=== PATIENT | female | born 1970 | race Caucasian/White ===

== ENCOUNTER → 2020-12-31 | Outpatient (CLI) | payer OTHER ==
[2020-12-31 13:43] LABS: RED BLOOD COUNT 4.95 M/UL (4.00-5.10); WHITE BLOOD COUNT 4.6 K/UL (4.5-11.0)
[2020-12-31 14:11] LABS: BUN/CREATININE RATIO 16 (0-10)
[2021-01-01 07:11] LABS: RHEUMATOID ARTHRITIS FACTOR 28.3 IU/mL (0.0-13.9); VITAMIN D, 25-HYDROXY 37.2 ng/mL (30.0-100.0)
== END ==
LOC: LAB 12:11
PROVIDERS: Nurse Practitioner Family
DX: D89.9 Disorder involving the immune mechanism, unspecified (principal); M25.50 Pain in unspecified joint; R76.8 Other specified abnormal immunological findings in serum; R53.83 Other fatigue
CPT/HCPCS: 36415; 80053; 82550; 82728; 83520; 85025; 85652; 86140; 86200; 86431